=== PATIENT | female | born 2000 | race Caucasian/White ===

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

== ENCOUNTER 2022-01-14 09:35 | Emergency (ER) | payer OTHER ==
[~2022-01-14] VITALS: Ht 157.5 cm; Wt 59.5 kg
[~2022-01-14 09:35] MED LIST: IBUP-2213 PO
[2022-01-14 09:43] VITALS: BP 104/71
--- NOTE | 2022-01-14 09:48 | NUR ---
Patient ambulated to bed 2
--- NOTE | 2022-01-14 09:56 | NUR ---
PATIENT PRESENTS TO ED WITH LEFT EARACHE . PT STATES . DENIES N/V/D; SKIN IS PINK/WARM/DRY; AAOX4 WITH EVEN AND STEADY GAIT; LUNGS CLEAR BL; HR EVEN AND REGULAR; PT DENIES ANY FEVER, CP, SOB, OR COUGH AT THIS TIME; PATIENT STATES PAIN OF 8/10 AT THIS TIME; VSS; PATIENT POSITIONED FOR COMFORT; HOB ELEVATED; BEDRAILS UP X2; BED DOWN. ER MD MADE AWARE OF PT STATUS.
--- NOTE | 2022-01-14 10:17 | NUR ---
SEEN AND EVALUATED BY , MSE COMPLETED.
[2022-01-14] MEDS ORDERED: IBUP-1842 PO (10:21)
[2022-01-14] MEDS ORDERED: AMOX1TAB8 PO (10:21)
--- NOTE | 2022-01-14 10:28 | NUR ---
Patient discharged with v/s stable. Written and verbal after care instructions given and explained. Patient alert, oriented and verbalized understanding of instructions. Ambulatory with steady gait. All questions addressed prior to discharge. ID band removed. Patient advised to follow up with PMD. Rx of AUGMENTIN AND IBUPROFEN given. Patient educated on indication of medication including possible reaction and side effects. Opportunity to ask questions provided and answered.
[2022-01-14 10:29] VITALS: BP 101/52
== END 2022-01-14 10:28 | disposition home or self-care (01) ==
LOC: MED 09:35
DX: H66.92 Otitis media, unspecified, left ear (principal)
CPT/HCPCS: 99283

== ENCOUNTER 2022-03-05 23:48 | Emergency (ER) | payer OTHER ==
[~2022-03-05] VITALS: Ht 157.5 cm; Wt 59.0 kg
[~2022-03-05 23:48] MED LIST changes: +AMOX1TAB8 PO; +IBUP-1842 PO
--- NOTE | 2022-03-06 00:05 | NUR ---
TO LOBBY FOLLOWING TRIAGE
--- NOTE | 2022-03-06 00:24 | NUR ---
Dr. Lantigua examining patient.
--- NOTE | 2022-03-06 01:10 | NUR ---
PT TAKEN TO RADIOLOGY
[2022-03-06] MEDS ORDERED: NAPR-54 PO (01:38)
[2022-03-06 01:44] VITALS: BP 119/78
--- NOTE | 2022-03-06 01:44 | NUR ---
Patient discharged with v/s stable. Written and verbal after care instructions given and explained by Dr. Lantigua. Patient alert, oriented and verbalized understanding of instructions. Ambulatory with steady gait. All questions addressed prior to discharge. ID band removed. Patient advised to follow up with PMD. Rx of Naprosyn given. Patient educated on indication of medication including possible reaction and side effects. Opportunity to ask questions provided and answered.
== END 2022-03-06 01:44 | disposition home or self-care (01) ==
LOC: MED 23:48
DX: R10.11 Right upper quadrant pain (principal); R07.9 Chest pain, unspecified
CPT/HCPCS: 71045; 99283

== ENCOUNTER 2022-06-24 13:07 | Emergency (ER) | payer OTHER ==
[~2022-06-24] VITALS: Ht 157.5 cm; Wt 61.2 kg
[~2022-06-24 13:07] MED LIST changes: +NAPR-54 PO
[2022-06-24 13:20] VITALS: BP 117/75
[2022-06-24] MEDS ORDERED: ONDANSETRON 4 MG ODT PO ONE (14:55)
[2022-06-24 15:35] LABS: BASOPHILS % (AUTO) 0.3 % (0.0-2.0); EOSINOPHILS # (AUTO) 0.1 K/uL (0-0.4); EOSINOPHILS % (AUTO) 0.7 % (0.0-4.0); HEMATOCRIT 42.2 % (36-48); HEMOGLOBIN 14.2 g/dL (12.0-16.0); LYMPHOCYTES # (AUTO) 1.8 K/uL (2.5-16.5); LYMPHOCYTES % (AUTO) 24.8 % (20.5-51.1); MEAN CORPUSCULAR HEMOGLOBIN 28 pg (27-31); MEAN CORPUSCULAR HGB CONC 34 g/dL (33-37); MEAN CORPUSCULAR VOLUME 83.7 fL (80-94); MONOCYTES # (AUTO) 0.5 K/uL (0.8-1.0); MONOCYTES % (AUTO) 7.5 % (1.7-9.3); NEUTROPHILS # (AUTO) 4.8 K/uL (1.8-7.7); NEUTROPHILS % (AUTO) 66.7 % (42.2-75.2); PLATELET COUNT (AUTO) 347 K/uL (140-450); RED BLOOD CELL COUNT(AUTO) 5.04 MIL/uL (4.20-5.40); RED CELL DISTRIBUTION WIDTH 12.9 % (11.6-13.7); WHITE BLOOD COUNT (AUTO) 7.3 K/uL (4.5-11.0)
[2022-06-24 15:59] LABS: ALBUMIN 4.4 g/dL (3.4-5.0); ANION GAP 9.4 (8-16); CARBON DIOXIDE 28.1 mmol/L (21-32); CREATININE 0.6 mg/dL (0.6-1.3); POTASSIUM 4.5 mmol/L (3.5-5.1); TOTAL BILIRUBIN 0.3 mg/dL (0.0-1.0)
[2022-06-24 17:21] LABS: APPEARANCE,URINE CLEAR (CLEAR); BILIRUBIN,URINE NEGATIVE (NEGATIVE); BLOOD, URINE 1+ (NEGATIVE); COLOR,URINE YELLOW (YELLOW); LEUKOCYTE ESTERASE ,URINE NEGATIVE (NEGATIVE); NITRITE, URINE NEGATIVE (NEGATIVE); PH,URINE 5.5 (5.0-9.0); UGLUCOSE NEGATIVE (NEGATIVE)
[2022-06-24 17:45] LABS: RBC,URINE 0-5 /HPF (0-5); WBC,URINE NONE SEEN /HPF (0-5)
[2022-06-24] MEDS ORDERED: ONDA-188 PO (18:06)
[2022-06-24] MEDS ORDERED: FAMO-90 PO (18:06)
--- NOTE | 2022-06-24 18:12 | NUR ---
Patient discharged with v/s stable. Written and verbal after care instructions given and explained. Patient alert, oriented and verbalized understanding of instructions. Ambulatory with steady gait. All questions addressed prior to discharge. ID band removed. Patient advised to follow up with PMD. Rx of FAMOTIDINE AND ZOFRAN given. Patient educated on indication of medication including possible reaction and side effects. Opportunity to ask questions provided and answered.
== END 2022-06-24 18:12 | disposition home or self-care (01) ==
LOC: MED 13:07
DX: R11.2 Nausea with vomiting, unspecified (principal)
CPT/HCPCS: 36415; 80053; 81001; 81025; 83690; 85025; 99283; Q0162

== ENCOUNTER 2023-12-14 13:42 | Emergency (ER) | payer OTHER ==
[~2023-12-14] VITALS: Ht 157.5 cm; Wt 59.0 kg
[~2023-12-14 13:42] MED LIST changes: +FAMO-90 PO; +NAPR-337 PO; -NAPR-54 PO; +ONDA-188 PO
[2023-12-14 13:59] VITALS: BP 137/84; PULSE 94; RESP 20; TEMP 97.3; O2SAT 96
[2023-12-14] MEDS: KETOROLAC 30 MG/ML VIAL IVP ONE (15:55)
[2023-12-14] MEDS: METOCLOPRAMIDE 10 MG/2 ML INJ VIAL IVP ONE (15:56)
[2023-12-14] MEDS: ACETAMINOPHEN EXTRA STRENGTH 500 MG TAB PO ONE (16:00)
[2023-12-14 17:32] VITALS: BP 121/75; PULSE 84; RESP 18; TEMP 98; O2SAT 96
== END 2023-12-14 17:31 | disposition home or self-care (01) ==
LOC: MED 13:42
DX: R51.9 Headache, unspecified (principal); R11.2 Nausea with vomiting, unspecified; Z79.899 Other long term (current) drug therapy
CPT/HCPCS: 81025; 96374; 96375; 99284; J1885; J2765

== ENCOUNTER 2024-03-08 09:20 | Emergency (ER) | payer OTHER ==
[~2024-03-08] VITALS: Ht 157.5 cm; Wt 60.0 kg
[2024-03-08 09:26] VITALS: BP 110/65; PULSE 82; RESP 18; TEMP 98.1; O2SAT 100
[2024-03-08 10:50] VITALS: BP 109/65; PULSE 72; RESP 18; TEMP 98.1; O2SAT 100
== END 2024-03-08 10:48 | disposition home or self-care (01) ==
LOC: MED 09:20
DX: S63.501A Unspecified sprain of right wrist, initial encounter (principal); Z79.899 Other long term (current) drug therapy; W01.0XXA Fall on same level from slipping, tripping and stumbling without subsequent striking against object, initial encounter; Y93.89 Activity, other specified; Y92.89 Other specified places as the place of occurrence of the external cause; Y99.8 Other external cause status
CPT/HCPCS: 73110; 81025; 99283